=== PATIENT | male | born 1985 | race Caucasian/White ===

== ENCOUNTER 2022-11-09 19:38 | Emergency (ER) | payer OTHER, SELFPAY ==
[2022-11-09 19:47] VITALS: BP 161/94; PULSE 90; RESP 18; TEMP 36.7; O2SAT 97; BMI 25.5
--- NOTE | 2022-11-09 19:47 | ED_ITS ---
HPI - General Adult General Chief complaint: Ear Problems Stated complaint: Left Ear Infection?Progressing to throat Time Seen by Provider: 11/09/22 19:49 Source: patient Mode of arrival: ambulatory Limitations: no limitations History of Present Illness HPI narrative: Patient is a 36-year-old male presenting with complaint of left ear pain for five days. Reports was swimming 4 days ago but sxs began the day before. Denies fevers, nasal congestion, cough. States ear feels swollen. MD complaint: ear pain Onset (ago): day(s) Radiation: non-radiation Severity: moderate Quality: aching Pain Consistency: constant Relieving factors: none Exacerbating factors: none Associated symptoms: denies other symptoms Treatments prior to arrival: none Related Data Previous Rx's Medication Instructions Recorded amoxicillin 875 mg tablet 875 mg PO BID #14 tabs 11/09/22 ofloxacin 0.3 % ear drops 10 drp otic (ears) DAILY 7 days 11/09/22 #10 mL Allergies Allergy/AdvReac Type Severity Reaction Status Date / Time No Known Allergies Allergy Verified 11/09/22 19:49 Review of Systems Review of Systems: As per HPI. Yes all other systems are reviewed and are negative Constitutional: Constitutional: Reports as per HPI [facility] Social History Social History Advance Directives: No Advance Directives Information Provided: No Physical Exam ED Vital Signs: Vital Signs - 24 hr 11/09/22 19:47 Temperature 98.1 F Pulse Rate 90 Respiratory Rate 18 Blood Pressure 161/94 H Pulse Oximetry 97 Oxygen Delivery Method Room Air BMI result Body Mass Index 25.5 Vital signs have been reviewed and appear to be correct. Blood pressure elevated. Heart rate normal. Respiratory rate normal. Temperature normal. Oxygen saturation normal. Const General: cooperative, healthy appearing and no acute distress Orientation/consciousness: oriented to person, oriented to place, oriented to time and patient oriented x3 Limitations: no limitations HENMT Head: Yes normocephalic and Yes atraumatic Ears: external ears normal, TM normal on the right, mastoids normal bilaterally, Abnormal EAC present erythema on the left and edema on the left and other (unable to visualize TM on left r/t EAC edema) General nose exam: Normal external nose present Face and sinus: Yes face symmetric Mouth: oropharynx normal and moist mucous membranes Throat: Yes uvula midline Eyes Pupils: Equal, round and reactive pupils present Neck Neck: Yes normal visual inspection and Yes supple Resp Effort & Inspection: normal respiratory effort and able to speak in complete sentences Auscultation: clear to auscultation bilaterally Cardio Rate: regular rate Rhythm: regular rhythm Heart sounds: S1 normal heart sound present and S2 normal heart sound present GI Palpation (GI): Soft to palpation and nontender Auscultation: normoactive bowel sounds General: Yes no CVA tenderness Back/Spine/Pelvis Back: no CVA tenderness Skin General skin exam: elasticity normal and turgor normal Neuro General: oriented to person, oriented to place, oriented to time, patient oriented x3, moves all extremities, no focal motor deficits and CN's II-XI intact bilaterally Cranial nerves: Yes Equal, round and reactive pupils present Cognition (Neuro): normal cognition Extrem General: Yes full ROM, Yes no pedal edema and Yes no calf tenderness Psych Mental Status: mental status grossly normal Affect: normal affect Thought process: Normal thought process present Medical Decision Making Medical Decision Making [facility] Narrative: Patient is a 36-year-old male presenting with complaint of left ear pain for five days. On exam patient is awake, A+Ox3, VS WNL, afebrile, normal neurological exam without focal deficits, edema and erythema to left EAC, TM normal on right, unable to visualize on left due to EAC swelling. Given reported symptoms and physical exam findings, initial differential includes otitis externa, otitis media, mastoiditis. Will prescribe antibiotic drops as well as amoxicillin since TM unable to be visualized, patient agreeable to this. Advised patient to follow up with PCP this week. Return precautions discussed, Tylenol and ibuprofen as needed for pain. Patient verbalized understanding of and agreement with plan. Differential Diagnosis Differential Diagnoses: The differential diagnosis associated with the presentation includes As per [facility] External Record Review External record reviewed: Inpatient record, Office record and Outpatient record Prescription Management I considered prescription management with: Antibiotic Discharge Plan Discharge Clinical Impression: Otitis media Otitis externa Qualifiers: Otitis externa type: unspecified type Chronicity: acute Laterality: left Qualified Code(s): H60.502 - Unspecified acute noninfective otitis externa, left ear Patient Disposition: Home, Self-Care Instructions: Otitis Externa (DC), How to Use Ear Drops (ED), Ear Infection (ED) Additional Instructions: You were evaluated in the emergency department today for ear pain. Your evaluation suggests that your pain is due to an ear infection. Please take your prescribed antibiotics and drops as directed for the full course of the medication. Please follow up with your primary care provider within two days. Return to the emergency department if you experience hearing loss, discharge from your ear, headaches, fevers, recurrent vomiting, or any other concerning symptoms. Prescriptions: New ofloxacin 0.3 % drops 10 drp otic (ears) DAILY 7 Days Qty: 10 0RF Rx Instructions: Left ear amoxicillin 875 mg tablet 875 mg PO BID Qty: 14 0RF
--- OUTSIDE RECORDS SUMMARY | 2022-11-09 20:03 | XMS_ITS | Continuity of Care Document ---
Author Name Unknown Organization [facility] Adult Address [address] [place] [id number]- Care Team Providers Care Director Of Radiology Name Role Phone Mikey PAULA, [facility] Primary Care Physician ( [phone] Encounter [facility] Date(s): 04/04/21 - 04/11/21 [facility] Adult [address] [place] [address]- Encounter Diagnosis Internal hemorrhoid(Discharge Diagnosis) - 04/04/21 Attending Physician: Mikey PAULA [facility] Allergies, Adverse Reactions, Alerts No Known Allergies Immunizations Given and Recorded Vaccine Date Status Refusal Reason influenza virus vaccine, inactivated 12/12/20 José Antonio rded influenza virus vaccine, inactivated 03/19/16 José Antonio rded SARS-CoV-2 (COVID-19) mRNA BNT-162b2 vac 12/03/20 Recorded SARS-CoV-2 (COVID-19) mRNA BNT-162b2 vac 03/26/20 Recorded SARS-CoV-2 (COVID-19) mRNA BNT-162b2 vac 03/05/20 Recorded Problem List Diagnosis Diagnosis Type Effective Dates Health Status Clinical Service Informant Internal hemorrhoid Discharge Diagnosis 04/04/21 Vital Signs Most recent to oldest [Reference Range]: 1 Height 175 cm (04/04/21 10:18 AM) Social History Social History Type Response Tobacco Use: Quit smoking Ju ly 2020. Sex
--- OUTSIDE RECORDS SUMMARY | 2022-11-09 20:03 | XMS_ITS | Continuity of Care Document ---
Author Name Unknown Organization [facility] Adult Address [address] [place] [address]- Care Team Providers Care Plate Molder Name Role Phone Mikey PAULA, [facility] Primary Care Physician Encounter [facility] Date(s): 11/19/20 - 12/19/[address] [address]- Allergies, Adverse Reactions, Alerts Substance Reaction Severity Status NKA Active Social History Social History Type Response Tobacco Use: Quit smoking Ju ly 2020. Sex
--- OUTSIDE RECORDS SUMMARY | 2022-11-09 20:03 | XMS_ITS | Continuity of Care Document ---
Author Name Unknown Organization [facility] Adult Address [address] [place] [id number]- Care Team Providers Care Machine Set Up Operator Name Role Phone Mikey PAULA, [facility] Primary [facility] Physician Encounter [facility] Date(s): 01/16/21 - 05/16/21 [facility] Adult [address] [place] [id number] Attending Physician: Debi Jensen MD Allergies, Adverse Reactions, Alerts No Known Allergies Immunizations Given and Recorded Vaccine Date Status Refusal Reason influenza virus vaccine, inactivated 12/12/20 José Antonio rded influenza virus vaccine, inactivated 03/19/16 José Antonio rded SARS-CoV-2 (COVID-19) mRNA BNT-162b2 vac 12/03/20 Recorded SARS-CoV-2 (COVID-19) mRNA BNT-162b2 vac 03/26/20 Recorded SARS-CoV-2 (COVID-19) mRNA BNT-162b2 vac 03/05/20 Recorded Social History Social History Type Response Tobacco Use: Quit smoking Ju ly 2020. Sex
--- OUTSIDE RECORDS SUMMARY | 2022-11-09 20:04 | XMS_ITS | Continuity of Care Document ---
Author Name Unknown Organization [facility] Adult Address [address] [place] [id number]- Care Team Providers Care Lead Inspector Name Role Phone Mikey PAULA, Debi Primary Care Physician Encounter [id number] Date(s): 04/10/20 - 04/17/[address] [address]- Encounter Diagnosis Annual physical exam(Discharge Diagnosis) - 04/10/20 Right otitis media(Discharge Diagnosis) - 04/10/20 Attending Physician: Debi Jensen MD Allergies, Adverse Reactions, Alerts Substance Reaction Severity Status NKA Active Medications Augmentin 875 mg-125 mg oral tablet 1 tablet, By Mouth, Every 12 hours, for 10 days, # 20 tablet, 0 Refills, Acute 04/20/20 10:41:00 EST, 04/10/20 10:41:00 EST, Tablet, [id number], Partial fill upon patient request if the prescription is for a schedule II opioid drug., 175, cm,... Start Date: 04/10/20 Stop Date: 04/20/20 Status: Ordered Problem List Diagnosis Diagnosis Type Effective Dates Health Status Cl inical Service Informant Annual physical exam Discharge Diagnosis 04/10/20 Right otitis media Discharge Diagnosis 04/10/20 Vital Signs Most recent to oldest [Reference Range]: 1 Height 175 cm (04/10/20 9:30 AM) Weight 76.5 kg (04/10/20 9:30 AM) Body Mass Index [18.5-24.99] 24.98 (04/10/20 9:30 AM) Weight Obtained Via Patient/family state d (04/10/20 9:30 AM) Social History Social History Type Response Tobacco Use: Quit smoking Ju ly 2020. Sex
--- OUTSIDE RECORDS SUMMARY | 2022-11-09 20:04 | XMS_ITS | Continuity of Care Document ---
Author Name Unknown Organization [facility] Adult Address [address] [place] [address]- Care Team Providers Care Monitoring Coordinator Name Role Phone Mikey PAULA, [facility] Primary Care Physician Encounter [facility] [place] [place] Date(s): 04/16/21 - 05/16/21 [facility] Adult [address] [place] [id number] Attending Physician: Janet Horton Admitting Physician: AdmJanet robertson Referring Physician: Admtr, [id number] Allergies, Adverse Reactions, Alerts No Known Allergies [...]
== END 2022-11-09 20:26 | disposition home or self-care (01) ==
PROVIDERS: Emergency Provider Internal Medicine
DX: H60.502 Unspecified acute noninfective otitis externa, left ear (principal); H66.92 Otitis media, unspecified, left ear; H92.02 Otalgia, left ear
CPT/HCPCS: 99282; 99283